=== PATIENT | male | born 1980 | race Caucasian/White ===

== ENCOUNTER 2023-08-10 09:34 | Emergency (ER) | payer SELFPAY ==
[2023-08-10 09:42] VITALS: BP 143/90; PULSE 84
[2023-08-10] MEDS ORDERED: Cyclobenzaprine 10 MG Tab PO ONE (09:46)
== END 2023-08-10 10:01 | disposition home or self-care (01) ==
LOC: MW.ED 09:34
DX: M54.9 Dorsalgia, unspecified (principal); F17.210 Nicotine dependence, cigarettes, uncomplicated; E20.9 Hypoparathyroidism, unspecified
CPT/HCPCS: 99283; A9270

== ENCOUNTER 2023-09-24 09:38 | Emergency (ER) | payer BC ==
[2023-09-24] MEDS ORDERED: Methocarbamol 750 MG TAB PO STA ×2 (11:13→11:28)
[2023-09-24] MEDS ORDERED: Lidocaine 4% 1 each Patch TOP STA (11:14)
[2023-09-24 12:33] VITALS: BP 136/80; PULSE 78
== END 2023-09-24 12:32 | disposition home or self-care (01) ==
LOC: MW.ED 09:38
DX: M54.6 Pain in thoracic spine (principal); R07.81 Pleurodynia; J45.909 Unspecified asthma, uncomplicated; E03.9 Hypothyroidism, unspecified; Z79.899 Other long term (current) drug therapy; W00.0XXA Fall on same level due to ice and snow, initial encounter
CPT/HCPCS: 71101; 99283; A9270

== ENCOUNTER 2023-12-13 13:15 | Emergency (ER) | payer BC ==
[2023-12-13] MEDS ORDERED: Dexamethasone 10 MG/ML SDV IM STA (13:46)
[2023-12-13 14:00] VITALS: BP 157/99; PULSE 93
[2023-12-13 14:19] LABS: CORONAVIRUS COVID-19 NAA NEGATIVE (NEGATIVE); INFLUENZA A NAA NEGATIVE (NEGATIVE); INFLUENZA B NAA NEGATIVE (NEGATIVE)
== END 2023-12-13 13:59 | disposition home or self-care (01) ==
LOC: MW.ED 13:15
DX: K12.2 Cellulitis and abscess of mouth (principal); J45.909 Unspecified asthma, uncomplicated; E66.9 Obesity, unspecified; F17.210 Nicotine dependence, cigarettes, uncomplicated; Z79.899 Other long term (current) drug therapy; Z20.822 Contact with and (suspected) exposure to COVID-19; Z68.38 Body mass index [BMI] 38.0-38.9, adult
CPT/HCPCS: 0240U; 87651; 96372; 99283; J1100